=== PATIENT | male | born 1945 | race Caucasian/White ===

== ENCOUNTER → 2016-10-29 | Outpatient (CLI) | payer OTHER, MEDICARE | END | disposition home or self-care (01) | LOC: MW.CHIM 07:33 | PROVIDERS: ATTEND Internal Medicine | DX: I50.9 Heart failure, unspecified (principal); I42.9 Cardiomyopathy, unspecified; N18.9 Chronic kidney disease, unspecified; E11.9 Type 2 diabetes mellitus without complications | CPT/HCPCS: 36415; 80048; 99214 ==

== ENCOUNTER → 2016-11-11 | Outpatient (CLI) | payer OTHER, MEDICARE ==
[2016-11-11 11:03] LABS: CHLORIDE,CL 103 mmol/L (98-110); SODIUM,NA 141 mmol/L (136-146)
== END ==
LOC: MW.LAB 10:24
PROVIDERS: ATTEND Internal Medicine
DX: N18.4 Chronic kidney disease, stage 4 (severe) (principal)
CPT/HCPCS: 36415; 80048

== ENCOUNTER → 2016-12-05 | Outpatient (CLI) | payer OTHER, MEDICARE | LOC: MW.CHIM 10:34 | PROVIDERS: ATTEND Internal Medicine | DX: I50.9 Heart failure, unspecified (principal); E11.9 Type 2 diabetes mellitus without complications; E78.5 Hyperlipidemia, unspecified; I42.9 Cardiomyopathy, unspecified | CPT/HCPCS: 36415; 80048; 80061; 83036; 83880; 85025; 85610 ==

== ENCOUNTER → 2016-12-25 | Outpatient (CLI) | payer OTHER, MEDICARE ==
--- NOTE | 2016-12-25 12:55 | CR ---
EXAMINATION: Two-view chest (PA and Lateral views). HISTORY: diabetes. FINDINGS: The trachea is midline. The cardiomediastinal silhouette is within normal limits. No pulmonary infil trates, effusions or pneumothorax. Mild aortic calcifications are noted. There is a calcified granul getachew within the right upper lobe. Osseous structures appear unremarkable. IMPRESSION: No acute cardiopulmonary process.
== END ==
LOC: MW.CHIM 11:57
PROVIDERS: ATTEND Internal Medicine
DX: E11.9 Type 2 diabetes mellitus without complications (principal); E78.5 Hyperlipidemia, unspecified; I10 Essential (primary) hypertension; N18.9 Chronic kidney disease, unspecified; I42.9 Cardiomyopathy, unspecified
CPT/HCPCS: 36415; 71020; 71020-26; 80053; 85025; 85610; 85730; 93005

== ENCOUNTER → 2017-01-08 | Outpatient (CLI) | payer OTHER, MEDICARE | LOC: MW.MNT 09:41 | PROVIDERS: ATTEND Internal Medicine | DX: Z71.3 Dietary counseling and surveillance (principal) | CPT/HCPCS: 97802 ==

== ENCOUNTER → 2017-01-27 | Outpatient (CLI) | payer OTHER, MEDICARE ==
--- NOTE | 2017-01-27 10:36 | CR ---
EXAMINATION: Two-view chest (PA and Lateral views). HISTORY: Hyperlipidemia. FINDINGS: The trachea is midline. The cardiomediastinal silhouette is within normal limits. No pulmonary infil trates, effusions or pneumothorax. Mild aortic calcifications are noted. Osseous structures appear unremarkable. IMPRESSION: No acute cardiopulmonary process.
== END ==
LOC: MW.CHPS 09:30 → MW.CHIM 09:30
PROVIDERS: ATTEND Internal Medicine
DX: Z01.818 Encounter for other preprocedural examination (principal); E78.5 Hyperlipidemia, unspecified; I10 Essential (primary) hypertension; N18.9 Chronic kidney disease, unspecified; I42.9 Cardiomyopathy, unspecified; I48.92 Unspecified atrial flutter
CPT/HCPCS: 36415; 71020; 71020-26; 80053; 83036; 85025; 85610; 85730

== ENCOUNTER → 2017-01-28 | Outpatient (CLI) | payer OTHER, MEDICARE | LOC: MW.CHIM 13:49 | PROVIDERS: ATTEND Internal Medicine | DX: E11.9 Type 2 diabetes mellitus without complications (principal); E78.5 Hyperlipidemia, unspecified; I10 Essential (primary) hypertension | CPT/HCPCS: 36415; 80061 ==

== ENCOUNTER 2017-06-30 07:32 | Day surgery (SDC) | payer MEDICARE, OTHER ==
[~2017-06-30 07:32] MED LIST: Lactated Ringers 1,000 ML IV SCH
[2017-06-30] MEDS ORDERED: Lidocaine 2% 5 ML SDV ONE (08:27)
[2017-06-30] MEDS ORDERED: Propofol 200 MG/20 ML SDV ONE (08:27)
[2017-06-30] MEDS ORDERED: fentaNYL 100 MCG/2 ML SDV ONE (08:27)
[2017-06-30] MEDS ORDERED: Midazolam 1 MG/ML 2 ML SDV ONE (08:27)
--- NOTE | 2017-06-30 09:06 | PCM.PREANE ---
Preanesthetic Assessment - Anesthesia/Transfusion/Family Hx Anesthesia History: Prior Anesthesia Without Reaction Family History of Anesthesia Reaction: No Transfusion History: No Prior Transfusion(s) - Physical Assessment NPO Status Date: 06/29/17 NPO Status Time: 22:00 O2 Sat by Pulse Oximetry: 96 Respiratory Rate: 16 Vital Signs: Last Vital Signs Temp 36.3 C 06/30/17 07:55 Pulse 55 L 06/30/17 07:55 Resp 16 06/30/17 07:55 BP 134/50 L 06/30/17 07:55 Pulse Ox 96 06/30/17 07:55 Height: 1.8 m Weight: 119.8 kg ASA Class: 3 Mental Status: Alert & Oriented x3 Airway Class: Mallampati = 2 Dentition: Reports: Normal Dentition ROM/Head Extension: Full Lungs: Clear to Auscultation, Normal Respiratory Effort Cardiovascular: Regular Rate, Regular Rhythm - Allergies Allergies/Adverse Reactions: Allergies Allergy/AdvReac Type Severity Reaction Status Date / Time No Known Allergies Allergy Verified 07/31/16 19:11 - Acknowledgements Anesthesia Type Planned: MAC Pt an Appropriate Candidate for the Planned Anesthesia: Yes Alternatives and Risks of Anesthesia Discussed w Pt/Guardian: Yes Pt/Guardian Understands and Agrees with Anesthesia Plan: Yes Additional Comments: PMH: new onsed afib with acute cardiomyopathy and congestive failure in late 2015. Had EF of 10-30 % at that time. transfered to [facility], placed in ICu, had 8 episodes of dialysis. Since then has had rate and rythem control. EF has improved, recently estimated to be 40%. Had heart cath in January 2017 showing normal coronary arteries. Had TKA in January 2017. Walks on treadmill for 20 min 2 -3 x/week without sx. PMH also sig for DM2 on insulin , sugars 100-150. HbA1c between 7.0 and 7.5. HTN, CKD (last Cr at [facility]=1.6), Last K at [facility] was 5.0, pt had labs at [facility] June 16. Cr=1.4, Potassium=4.0 OK for MAC anesthesia today. PreAnesthesia Questionnaire HEENT History: Reports: None Cardiovascular History: Reports: Heart Failure, High Cholesterol, Hypertension Respiratory History: Reports: None Gastrointestinal History: Reports: None Genitourinary History: Reports: Dialysis, Other (See Below) Other Genitourinary History: hx kidney failure Jul, 2016 on dialysis for short time (pt states x8) Musculoskeletal History: Reports: Arthritis Neurological History: Reports: Neuropathy, Diabetic Psychiatric History: Reports: None Endocrine/Metabolic History: Reports: Diabetes, Type II, Obesity/BMI 30+ Hematologic History: Reports: None Oncologic (Cancer) History: Reports: None Dermatologic History: Reports: None - Infectious Disease History Infectious Disease History: Reports: Chicken Pox, Measles, Mumps - Past Surgical History Head Surgeries/Procedures: Reports: None Other Cardiovascular Surgeries/Procedures: hx angiogram, no stents needed GI Surgical History: Reports: Colonoscopy Male Surgical History: Reports: None Musculoskeletal Surgical History: Reports: Knee Replacement, Other (See Below) Other Musculoskeletal Surgeries/Procedures:: surgery on rt wrist, rt total knee replacement - SUBSTANCE USE Smoking Status *Q: Former Smoker Tobacco Use Within Last Twelve Months: Cigarettes Recreational Drug Use History: No - HOME MEDS Home Medications: Home Meds Aspirin 81 mg PO DAILY 05/05/16 [History] Simvastatin [Zocor] 10 mg PO BEDTIME 05/05/16 [History] Insulin Regular, Human [Humulin R U-500 Kwikpen] 1 injection SQ ASDIRECTED 07/31 [History] Fenofibrate Nanocrystallized [Fenofibrate] 145 mg PO DAILY 06/25/17 [History] Furosemide 20 mg PO BID 06/25/17 [History] Isosorbide Mononitrate [Isosorbide Mononitrate ER] 60 mg PO DAILY 06/25/17 [ History] Metoprolol Succinate 200 mg PO DAILY 06/25/17 [History] Potassium Chloride 20 meq PO DAILY 06/25/17 [History] hydrALAZINE HCl [Hydralazine HCl] 50 mg PO TID 06/25/17 [History] - CURRENT (IN HOUSE) MEDS Current Meds: Current Medications Lactated Ringer's (Ringers, Lactated) 1,000 mls @ 125 mls/hr IV ASDIRECTED EMILY Discontinued Medications Fentanyl (Sublimaze) Confirm Administered Dose 100 mcg .ROUTE .STK-MED ONE Stop: 06/30/17 08:28 Lidocaine (Xylocaine-Mpf 2%) Confirm Administered Dose 5 ml .ROUTE .STK-MED ONE Stop: 06/30/17 08:28 Midazolam HCl (Versed 1 Mg/Ml) Confirm Administered Dose 2 mg .ROUTE .STK-MED ONE Stop: 06/30/17 08:28 Propofol (Diprivan 20 Ml) Confirm Administered Dose 200 mg .ROUTE .STK-MED ONE Stop: 06/30/17 08:28
[2017-06-30] MEDS ORDERED: Dextrose 5% in Water 500 ML IV SCH (09:15)
[2017-06-30] MEDS ORDERED: metroNIDAZOLE/Normal Saline 500 MG in Premix Bag 1 BAG IV ONE (10:16)
[2017-06-30] MEDS ORDERED: metroNIDAZOLE/Normal Saline 100 ML ONE (10:24)
[2017-06-30] MEDS ORDERED: Ampicillin 1 GM in Sodium Chloride 0.9% 50 ML IV ONE (10:30)
--- NOTE | 2017-06-30 11:19 | PCM.OPNOTE ---
- General Post-Op/Procedure Note Date of Surgery/Procedure: 06/30/17 Operative Procedure(s): colonoscopy Findings: see dict [id number] Pre Op Diagnosis: surveillence colonoscopy Post-Op Diagnosis: diverticulosis Anesthesia Technique: Moderate Sedation Primary Surgeon: Portillo Chow Complications: None Condition: Good
--- NOTE | 2017-06-30 11:41 | PCM48HPAN ---
Post Anesthesia Note - EVALUATION WITHIN 48HRS OF ANESTHETIC Vital Signs in Normal Range: Yes Patient Participated in Evaluation: Yes Respiratory Function Stable: Yes Airway Patent: Yes Cardiovascular Function Stable: Yes Hydration Status Stable: Yes Pain Control Satisfactory: Yes Nausea and Vomiting Control Satisfactory: Yes Mental Status Recovered: Yes - COMMENTS/OBSERVATIONS Free Text/Narrative:: post procedure glucose = 192, D5 piggybacked infusion stopped. Alert and ready for discharge.
[2017-06-30 11:50] VITALS: BP 142/65
--- NOTE | 2017-06-30 15:05 | OR ---
SURGEON: Portillo Chow MD DATE OF PROCEDURE: 06/30/2017 PREOPERATIVE DIAGNOSIS: Surveillance colonoscopy. POSTOPERATIVE DIAGNOSIS: Diverticulosis. PROCEDURE PERFORMED: Colonoscopy. FINDINGS: 1. The patient has total knee procedure in the past, was given ampicillin and Flagyl prior to procedure. 2. Patient was easily sedated by CHILDREN COUNSELOR on Diprivan. The patient is soundly snoring. 3. Patient's bowel prep is left to be desirable. Large amount of opaque liquid stool compromised the study requiring constant irrigation. 4. The patient's colon was rather straight forward. Cecum indicated by ileocecal fold, one-to-one indentation, light immittance, and appendiceal orifice and mucosa examined. Upon scope pulling out, the patient has mild diverticulosis, very, very mild on the left side of the colon. No signs or symptoms of diverticulitis. No polyp, mass, growth, inflammation, stricture, AV malformation, or blood ulceration. The patient has mild internal hemorrhoids and the patient would benefit from a repeat colonoscopy 10 years from today or if clinically indicated otherwise as patient is going to be 87 years old. The patient had the option of call for the report and the patient should be able to resume all his medication and anticoagulation tomorrow morning. DESCRIPTION OF PROCEDURE: The patient was taken to the endoscopy room. A time out was called, patient identified, and procedure identified. Diprivan was then administrated. Patient went from awake to sleep, hearing doctor talking or door closing is normal. Perineum inspection and digital examination were then performed. A well- lubricated colonoscope was gently inserted through the rectum, advanced past the rectosigmoid junction, the descending colon, splenic flexure, transverse colon, hepatic flexure, ascending colon, arrived to the cecum. Cecum was identified as dictated in the finding. Then the scope was carefully withdrawn while attention was paid to the mucosal surface for any abnormality. Air will be sucked out during the scope withdrawal. At the rectum, retroflexed to examine any rectal diseases, fistula or hemorrhoids. Patient tolerated procedure well. There were no intraoperative complications, and Dr. Chow was present throughout the whole procedure. As always thank you for the kind referral. DINORAH / RONALD /[id number]
== END 2017-06-30 11:55 | disposition home or self-care (01) ==
LOC: MW.SDS 07:32
PROVIDERS: ATTEND Surgery
DX: Z12.11 Encounter for screening for malignant neoplasm of colon (principal); K57.30 Diverticulosis of large intestine without perforation or abscess without bleeding; K64.8 Other hemorrhoids; I48.92 Unspecified atrial flutter; I42.9 Cardiomyopathy, unspecified; I50.20 Unspecified systolic (congestive) heart failure; I25.2 Old myocardial infarction; I13.0 Hypertensive heart and chronic kidney disease with heart failure and stage 1 through stage 4 chronic kidney disease, or unspecified chronic kidney disease; E11.22 Type 2 diabetes mellitus with diabetic chronic kidney disease; N18.9 Chronic kidney disease, unspecified; E78.5 Hyperlipidemia, unspecified; M17.0 Bilateral primary osteoarthritis of knee; E66.9 Obesity, unspecified; I48.91 Unspecified atrial fibrillation; E11.40 Type 2 diabetes mellitus with diabetic neuropathy, unspecified; Z86.010 Personal history of colon polyps; Z87.891 Personal history of nicotine dependence; Z79.4 Long term (current) use of insulin; Z79.82 Long term (current) use of aspirin; Z79.899 Other long term (current) drug therapy; Z98.890 Other specified postprocedural states; Z96.651 Presence of right artificial knee joint; Z68.37 Body mass index [BMI] 37.0-37.9, adult
CPT/HCPCS: 45378; 82962; J2250; J3010; 00810; J2704